=== PATIENT | male | born 1955 | race Caucasian/White ===

== ENCOUNTER 2018-09-05 09:05 | Observation (INO) ==
--- NOTE | 2018-08-15 15:51 | PAT Medication Instructions ---
Medication Instructions Date of Service August 15, 2018 Home Medications Medication Instructions Recorded gabapentin 300 mg capsule 300 mg PO TID #90 cap 08/05/18 multivitamin 1 tab PO QAM gabapentin 300 mg capsule 300 mg PO TID naproxen 220 mg-diphenhydramine 25mg 1 tab PO HS naproxen sodium 220 mg tablet 220 mg PO Q8H PRN ASK your prescriber and surgeon naproxen 220 mg-diphenhydramine 25mg 1 tab PO HS naproxen sodium 220 mg tablet 220 mg PO Q8H PRN DO NOT take the morning of surgery multivitamin 1 tab PO QAM Take morning of surgery With a small sip of water, OTHERWISE NOTHING TO EAT OR DRINK AFTER MIDNIGHT: gabapentin 300 mg capsule 300 mg PO TID Take evening before surgery gabapentin 300 mg capsule 300 mg PO TID Other Notes If you have any questions please call us at [phone] or [phone] or [phone] or [phone]
--- NOTE | 2018-08-16 11:07 | Anesthesiology Consultation ---
Date of Service August 16, 2018 Assessment & Plan (1) Encounter for pre-operative examination: Chart Review Chart Review: Acceptable Risk for Surgery and Patient seen in Pre Admission Testing Teaching & Discussion Instructed NPO after midnight before surgery, except medications with 15 cc of water. Medication instructions provided according to the PAT guidelines. History Surgery Operation Date: 09/05/18 10:50 Proposed Procedures p C7-T1 Anterior Cervical Discectomy and Fusion with Iliac Crest Bone Graft - Erick Farias, Height/Weight Height: 5 ft 10 in Weight: 84.4 kg Allergies Allergy/AdvReac Type Severity Reaction Status Date / Time No Known Allergies Allergy Verified 08/12/18 12:16 Medications Home Medications Medication Instructions Recorded Confirmed Last Taken multivitamin 1 tab PO QAM 05/03/18 08/12/18 05/20/18 gabapentin 300 mg capsule 300 mg PO TID #90 cap 08/05/18 08/12/18 Unknown naproxen 220 mg-diphenhydramine 25 1 tab PO HS 08/05/18 08/12/18 Unknown mg tablet naproxen sodium 220 mg tablet 220 mg PO Q8H PRN 08/05/18 08/12/18 Unknown Past Medical History Medical History Herniation of cervical intervertebral disc with radiculopathy (Acute) Cervicalgia (Chronic) Cervical facet syndrome (Acute) Cervical radiculopathy (Acute) Exercise / Class Metabolic Activity II 4-5 Yardwork/Stairs/Walk up hill (previously more active, has been limited by recent bunionectomy and now neck pain, denies CP or SOB) Past Family History Family History Other No family history of adverse response to anesthesia Past Surgical History Surgical History History of bunionectomy (Resolved) RT SIDE ON LITTLE TOE History of colonoscopy (Resolved) 05/25/2018. MAC no issues. History of hand surgery (Resolved) right, middle finger--no hardware History of tooth extraction (Resolved) 2 front teeth replaced Hx of vasectomy (Resolved) Status post bilateral LASIK surgery (Resolved) Past Anesthesia History No Hx of Anesthesia Complications and No Family Hx of Anesthesia Complications History of PONV No Hx of PONV and No Family Hx of PONV STOP BANG Total 3 Social History Smoking Status: Never smoker Do You Dip or Chew Tobacco: No Hx Alcohol Use: Yes Alcohol type: wine alcohol intake frequency: a few times a week Hx Substance Use: No substance use type: does not use Review of Systems Pt denies any recent chest pain, shortness of breath, palpitations, cough, fever or URI. +dry raspy throat Physical Exam Vital Signs BP: 143/72 P: 69bpm SPO2: 95% RA T: 98.0 R: 12 ENMT Mouth: + dental restorations (two implants on upper central incisors); no c hipped teeth and no loose teeth Thyromental Distance: > or= 3.5 Finger Breadths (3.5) Mallampati Class: II Neck normal visual inspection and + limited neck extension (mildly) Respiratory normal respiratory effort Auscultation: lungs clear to auscultation bilaterally Cardiovascular Rate/Rhythm: regular rate and regular rhythm Heart Sounds: no murmur Vessels: no carotid bruit Extremities: no edema Testing Electrocardiogram Date: 06/03/18 Findings: + SB @ (59bpm) iRBBB. Chest X-Ray Date: 08/16/18 Findings: + NAD Laboratory Results 08/16/18 11:15 08/16/18 11:15 Blood Type O Positive 08/16/18 11:15 Antibody Screen NEGATIVE 08/16/18 11:15 PT 10.2 Seconds (9.0-12.0) 08/16/18 11:15 INR 1.0 (0.9-1.1) 08/16/18 11:15 APTT 26.6 Seconds (21.0-31.0) 08/16/18 11:15
--- NOTE | 2018-08-16 12:10 | XRay Report ---
XR chest Pre-admission PA/Lat CLINICAL HISTORY: Preoperative evaluation. COMPARISON STUDY: No previous studies for comparison. FINDINGS: Lung volumes are normal. There is no pneumothorax or pleural effusion. There is no consolid ation or evidence for pulmonary edema. Cardiac size is normal. Mediastinal contours are normal. IMPRESSION: No acute cardiopulmonary findings. Electronically signed by: Laz Carrera M.D. 08/16/2018 12:09 PM
[2018-08-16 12:13] LABS: Basophils # (auto) 0.02 K/uL (0-0.2); Basophils % (auto) 0.4 %; Eosinophils # (auto) 0.15 K/uL (0-0.5); Eosinophils % (auto) 2.9 %; Hematocrit (blood only) 43.1 % (42-52); Hemoglobin 14.7 g/dL (14.0-18.0); Immature Granulocytes # (auto) 0.01 K/uL (0.00-0.02); Immature Granulocytes % (auto) 0.2 %; Lymphocytes # (auto) 1.44 K/uL (1.2-3.4); Lymphocytes % (auto) 28.1 %; Mean Corpuscular Hgb Conc 34.1 g/dL (32-36); Mean Corpuscular Volume 90.2 fL (80-100); Mean Platelet Volume 11.4 fL (7.4-10.4); Monocytes # (auto) 0.41 K/uL (0.11-0.59); Neutrophils # (auto) 3.09 K/uL (1.4-6.5); Neutrophils % (auto) 60.4 %; Platelet Count 210 K/uL (130-400); RDW Coefficient of Variation 13.6 % (11.5-14.5); RDW Standard Deviation 45.4 fL (36.4-46.3); Red Blood Count 4.78 M/uL (4.7-6.1); White Blood Count 5.12 K/uL (4.8-10.8)
[2018-08-16 12:25] LABS: Partial Thromboplastin Time 26.6 Seconds (21.0-31.0); Prothrombin Time 10.2 Seconds (9.0-12.0)
[2018-08-16 12:55] LABS: BUN Creatinine Ratio 24.3 (10-20); Creatinine Clr Calc Pharmacy 83.9 ml/min; Est GFR (African American) 100.9; Est GFR (Non-African American) 87.1; Potassium 4.3 mmol/L (3.5-5.1)
--- NOTE | 2018-09-02 15:26 | History and Physical Report ---
DATE OF ADMISSION: 09/05/2018 CHIEF COMPLAINT: He is scheduled for anterior cervical discectomy and fusion, C7-T1 cervical spine. HISTORY OF PRESENT ILLNESS: Parker is a delightful gentleman. He is 62 years of age. His has neck and arm pain going on for several months in duration, worsening over time, failing conservative measures, significant pain and associated weakness. PAST MEDICAL HISTORY: Negative for hypertension, COPD, diabetes mellitus. PAST SURGICAL HISTORY: Finger surgery. ALLERGIES: Negative. FAMILY HISTORY: Heart disease. SOCIAL HISTORY: He is . Minimal alcohol, no tobacco. Very active lifestyle, physically fit. REVIEW OF SYSTEMS: Denies any fevers, sweats, chills. Ear, nose and throat negative. Denies chest pain, palpitations. Denies asthma, wheezing, shortness of breath. Denies nausea, vomiting, urgency, frequency, dysuria. Denies skin rashes or lesions. He has neck pain, arm pain, trapezius pain, associated weakness. PHYSICAL EXAMINATION: GENERAL: He is 5 feet 10, 180 pounds. He is in distress. VITAL SIGNS: Blood pressure 130/80, pulse 80. CARDIAC: Normal S1, S2, no S3. LUNGS: Clear to auscultation. No rales, rhonchi, wheezing. ABDOMEN: Soft, nontender, bowel sounds present. GENITOURINARY: No dysuria. No pelvic pain. MUSCULOSKELETAL: He has neck pain, arm pain, and trapezius pain. He has weakness of complaint analyst strength. He has decreased triceps strength. He has a Spurling maneuver and Lhermitte sign. IMAGING DATA: Images reviewed in great detail. PLAN: Includes an anterior cervical discectomy and fusion, C7-T1 with iliac crest bone graft September 05.
--- NOTE | 2018-09-02 15:37 | History and Physical Report ---
DATE OF ADMISSION: 09/05/2018 CHIEF COMPLAINT: Neck pain, arm pain, trapezius pain. HISTORY OF PRESENT ILLNESS: Parker is delightful. He has a disc herniation of the cervical spine. He has neck pain, arm pain, weakness and is scheduled for a surgery on 05 of September for anterior cervical fusion. PAST MEDICAL HISTORY: Negative for heart disease, diabetes, carcinoma. PAST SURGICAL HISTORY: Finger surgery. ALLERGIES: Negative. FAMILY HISTORY: Heart disease. SOCIAL HISTORY: He is . 1-2 drinks of alcohol daily. No tobacco. Very active lifestyle, keeps himself physically fit. He is retired. REVIEW OF SYSTEMS: He has no fever, sweats, chills. No bowel and bladder issues. Ear, nose and throat negative. Denies chest pain, palpitations. No asthma, wheezing, shortness of breath. No nausea, vomiting, urgency, frequency, dysuria. His neck pain, arm pain and weakness. MEDICATIONS: Gabapentin and an anti-inflammatory. OBJECTIVE: GENERAL: He is alert and oriented, 62 years of age. He has pain with flexion, extension of cervical spine. Pain with rotation: VITAL SIGNS: He is 5 feet 10 inches. He is 180. His blood pressure 120/80, pulse regular rate and rhythm about 80 beats per minute. CARDIAC: Normal S1, S2, no S3. LUNGS: Clear to auscultation. No rales, rhonchi, wheezing. ABDOMEN: Soft, nontender. Bowel sounds present. NEUROLOGIC: He has pain with flexion, extension of cervical spine. 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 He has a Spurling maneuver and Lhermitte sign. PLAN: Includes an anterior cervical discectomy and fusion, C7-T1 with iliac crest bone graft.
[~2018-09-05 09:05] MED LIST: CEFAZOLIN 2000MG 2,000 MG/15 ML SYR IV SCH; LR 15ML/HR IV SCH; LR 60ML/HR IV SCH; MIDAZOLAM HCL 1 MG/ML 2ML VIAL ONE; SODIUM CHLORIDE 0.9% 1000ML 1,000 ML IV SCH; fentaNYL citrate 100 MCG/2 ML VIAL ONE
[2018-09-05] MEDS ORDERED: BUPIVACAINE/EPINEPHRINE 0.5% MPF 1:200,000 30 ML VIAL ONE (09:45)
[2018-09-05] MEDS ORDERED: GELATIN SPONGE SZ 100 ONE (09:45)
[2018-09-05] MEDS ORDERED: THROMBIN FOR SOLN 20000 UNIT KIT ONE (09:46)
[2018-09-05] MEDS ORDERED: BACITRACIN INJ 50,000 UNIT VIAL ONE (09:46)
--- NOTE | 2018-09-05 10:01 | History & Physical Bridge Note ---
Date of Service September 05, 2018 History & Physical Bridge Note I have examined the patient, reviewed the History & Physical and in the interval since the performance of the History & Physical I have noted the following changes of clinical significance: no changes noted
[2018-09-05] MEDS ORDERED: HYDROmorphone INJ 1 MG/ML SYRINGE IV PRN (10:09)
[2018-09-05] MEDS ORDERED: ATROPINE SULFATE 0.1 MG/ML 10ML SYR IV PRN (10:09)
[2018-09-05] MEDS ORDERED: fentaNYL citrate 100 MCG/2 ML VIAL IV PRN (10:09)
[2018-09-05] MEDS ORDERED: ONDANSETRON INJ 2 MG/ML 2 ML VIAL IV PRN ×2 (10:09→14:30)
[2018-09-05] MEDS ORDERED: ePHEDrine sulfate 50 MG/ML AMP IV PRN (10:09)
[2018-09-05] MEDS ORDERED: ROCURONIUM BROMIDE 10 MG/ML 5 ML VIAL ONE ×2 (10:52→10:59)
[2018-09-05] MEDS ORDERED: PROPOFOL IV EMULSION 10 MG/ML 20 ML VIAL IV ONE (10:52)
[2018-09-05] MEDS ORDERED: GLYCOPYRROLATE 0.2 MG/ML VIAL ONE (10:52)
[2018-09-05] MEDS ORDERED: ONDANSETRON INJ 2 MG/ML 2 ML VIAL ONE (10:52)
[2018-09-05] MEDS ORDERED: NEOSTIGMINE METHYLSULFATE 5 MG/5 ML SYR ONE (10:52)
[2018-09-05] MEDS ORDERED: DEXAMETHASONE SOD INJ 4 MG/ML VIAL ONE (10:52)
[2018-09-05] MEDS ORDERED: LIDOCAINE HCL 2% 2 ML VIAL/AMP(20MG/ML) INFIL ONE (10:52)
[2018-09-05] MEDS ORDERED: LARYING-O-JET KIT (LTA) ONE (10:52)
[2018-09-05] MEDS ORDERED: HYDROmorphone INJ 2 MG/ML SYR/VIAL ONE (10:59)
[2018-09-05] MEDS ORDERED: ePHEDrine sulfate 50 MG/ML SYR ONE (11:01)
[2018-09-05] MEDS ORDERED: PHENYLEPHRINE 100MCG/ML 5ML SYR ONE (11:01)
--- OUTSIDE RECORDS SUMMARY | 2018-09-05 11:50 | External Medical Summary | Continuity of Care Document ---
:1955 Author Name Kodak Gregory Address Unavailable Unavailable , Care Team Providers Name Role Phone Matty DE LA ROSA Unavailable [email or web address] Frank [email or web address] Unavailable [email or web address] Serina DIALLO Unavailable Unavailable Unavailable Unavailable Unavailable Problems Active medical history not documented Allergies and Adverse Reactions Allergy history not documented Medications Suprep Bowel Prep Kit 17.5-3.13-1.6 GM/177ML Oral Solu tion; USE DIRECTED. RJ Starr Start: 28-Apr-2018 Quantity: 1 2 x 177 ML Bottle Refills: 0 Procedures Procedures not documented Immunizations Immunizations not documented Plan of Treatment Planned Observations Planned Goals not documented Results No Known Results Results not documented
--- NOTE | 2018-09-05 12:11 | Fluoroscopy Report ---
FL spine 1V any level CLINICAL HISTORY: 62 years-old Male presenting with C7-T1 ACDF. TECHNIQUE: 1 fluoroscopic image(s) recorded as part of an intraoperative procedure. COMPARISON: MR from 07/15/2018. FINDINGS/IMPRESSION: Anterior cervical discectomy and fusion at C7-T1 poorly visualized due to overlapping osseous structu res. Supporting tubes device is noted aerodigestive tract. Please see surgical report for further details. Fluoroscopy dosage (mGy): 3.87. Fluoroscopy time: 9.1 seconds. Number or time of high level fluoroscopy (HLF), digital spot, or digital subtraction images: 2.2 seco nds. Electronically signed by: Parker García M.D. 09/05/2018 12:10 PM
--- NOTE | 2018-09-05 12:25 | Post Operative Brief Note ---
Immediate Post Op Note v1 Date of Surgery September 05, 2018 Pre & Post Diagnosis Operation Date: 09/05/18 10:30 Pre-Op Diagnosis: Disc Herniation, Cervical Spondylosis Post-Op Diagnosis: Disc Herniation, Cervical Spondylosis Procedure Operation Date: 09/05/18 10:30 Actual Procedures p C7-T1 Anterior Cervical Discectomy and Fusion with Left Iliac Crest Bone Graft(Not Applicable) - Erick Farias DO Surgeon Erick Farias DO Automatic Line Set Up Mechanic joy Estimated Blood Loss 20 Findings Consistent with Post-Op Diagnosis Drains [place] Drain
--- NOTE | 2018-09-05 14:00 | Anesthesiology Progress Note ---
Date of Service September 05, 2018 Anesthesia Post Procedure Vital Signs Vital Signs: Temp Pulse Resp BP Pulse Ox 09/05/18 13:50 76 13 130/81 96 09/05/18 13:40 36.3 C L 54 L 12 132/78 97 09/05/18 13:30 52 L 15 133/86 99 09/05/18 13:20 57 L 10 L 134/71 98 09/05/18 13:10 63 10 L 133/79 97 09/05/18 13:00 75 11 L 133/80 96 09/05/18 12:50 64 10 L 125/66 99 09/05/18 12:40 77 12 128/58 L 99 09/05/18 12:30 86 14 128/69 98 09/05/18 12:22 36.2 C L 59 L 12 112/61 96 Pain Intensity Neck: Pain Intensity: 0 Transfer of Care Handoff Completed per policy Notes Mental Status: alert / awake / arousable and participated in evaluation Patient Amnestic to Procedure: Yes Nausea / Vomiting: adequately controlled Pain: adequately controlled Airway Patency, RR, SpO2: stable & adequate BP & HR: stable & adequate Hydration State: stable & adequate Anesthetic Complications: no major complications apparent and Pt Satisfied with anesthetic care
[2018-09-05] MEDS ORDERED: HYDROmorphone INJ 0.5 MG/0.5 ML SYR IV PRN (14:30)
[2018-09-05] MEDS ORDERED: OXYCODONE HCL IR 5 MG TAB (IMMEDIATE RELEASE) PO PRN (14:30)
[2018-09-05] MEDS ORDERED: DEXAMETHASONE SOD PHOSPHATE 8 MG in SYRINGE 0 ML IV PRN (14:30)
[2018-09-05] MEDS ORDERED: LORazepam 0.5 MG/1 ML VIAL IV PRN (14:30)
[2018-09-05] MEDS ORDERED: RACEPINEPHRINE 2.25% NEBU SOLN 0.5 ML VIAL INH PRN (14:30)
[2018-09-05] MEDS ORDERED: ACETAMINOPHEN 1,000 MG/100 ML VIAL IV PRN (14:30)
[2018-09-05] MEDS ORDERED: NALOXONE HCL 0.4 MG/1 ML VIAL/CARP IV PRN (14:30)
[2018-09-05] MEDS: GABAPENTIN 300 MG CAP PO SCH ×2 (16:37→20:48)
[2018-09-05] MEDS: SODIUM CHLORIDE 0.9% 1000ML 1,000 ML IV SCH (16:39)
[2018-09-05] MEDS: DEXAMETHASONE SOD PHOSPHATE 6 MG in SYRINGE 0 ML IV SCH (18:36)
[2018-09-05] MEDS: CEFAZOLIN 2000MG 2,000 MG/15 ML SYR IV SCH (18:36)
[2018-09-06] MEDS: CEFAZOLIN 2000MG 2,000 MG/15 ML SYR IV SCH ×2 (01:21→09:12)
[2018-09-06] MEDS: DEXAMETHASONE SOD PHOSPHATE 6 MG in SYRINGE 0 ML IV SCH ×2 (03:00→09:13)
[2018-09-06] MEDS: SODIUM CHLORIDE 0.9% 1000ML 1,000 ML IV SCH (03:09)
--- NOTE | 2018-09-06 07:57 | Operative Report ---
DATE OF OPERATION: 09/05/2018 PREOPERATIVE DIAGNOSIS: Disc herniation, cervical spine C7-T1 with spinal cord compression. POSTOPERATIVE DIAGNOSIS: Disc herniation, cervical spine C7-T1 with spinal cord compression. PROCEDURE: 1. Anterior cervical thoracic discectomy fusion at C7-T1 cervical spine, decompression of spinal cord. 2. Left iliac crest structural autograft. 3. Anterior plating from C7-T1. SURGEON: Erick Farias DO DIRECTOR BIOLOGICS: Gerson Cruz PA-C. COMPLICATIONS: Zero. Prior to taking the patient back to the operating room, he was marked correctly in the holding area. He was brought to the operating room. He was prepped and draped sterile. We made a skin incision over the C7 vertebral body. We came right down on C6-C7 interspace. Worked downward one space below C7-T1. With great exposure, we did a formal discectomy at this level, taking out all conceivable disc material. I was back in through the posterior longitudinal ligament. I was into the neural foramen. I retrieved free fragment disc. I felt his spinal cord was completely decompressed of nerve root pressure. We then went to the iliac crest to harvest and made a skin incision, fascial incision, harvested a structural autograft from left iliac crest approximately 7 mm in height, tapered to 6, 15 mm in depth and approximately 15 mm left to right. This was placed in the discectomy site at C7-T1. An anterior plate was placed over the construct, locked with cortical screw 16 mm in length. A postop x-ray obtained demonstrated appropriate positioning of spinal implants. We then irrigated and closed in layers cervical spine and the iliac crest. Sterile dressings applied. Collar applied. The patient returned to PACU in improved and stable condition. There were no apparent intraoperative complications. As stated surgeon was Dinora, medical claims assistant was Gerson Cruz. IMPLANTS USED: Were by the [employer] anterior plate. The anterior bone graft and plate were absolutely required for the structural stability of the cervical spine. Sponge and needle count correct at the close of the procedure. There was no allograft used in the surgical procedure. I attest to the content of the Intraoperative Record and any orders documented therein. Any exception s are noted below.
--- NOTE | 2018-09-06 08:47 | Anesthesiology Progress Note ---
Date of Service September 06, 2018 Anesthesia Post Procedure Vital Signs Vital Signs: Temp Pulse Pulse Resp BP Pulse Ox 09/06/18 07:13 84 14 96 09/06/18 07:08 36.6 C 77 16 123/79 94 09/06/18 05:15 36.8 C 71 16 120/74 95 09/06/18 04:02 79 16 92 09/06/18 03:15 37.4 C 81 16 113/74 95 09/06/18 01:15 37.2 C 87 16 109/69 96 09/05/18 23:46 99 H 16 95 09/05/18 23:15 37.0 C 91 H 18 112/72 95 09/05/18 21:15 36.6 C 82 16 128/83 94 09/05/18 20:07 89 16 95 09/05/18 19:15 36.8 C 82 18 112/85 95 09/05/18 17:15 36.7 C 87 16 119/75 97 09/05/18 16:15 36.4 C L 87 16 145/80 H 96 09/05/18 15:21 104 H 18 97 09/05/18 15:15 36.6 C 84 16 136/80 96 09/05/18 14:45 72 16 125/76 97 09/05/18 14:15 36.4 C L 73 16 133/79 96 09/05/18 14:00 72 12 129/71 96 09/05/18 13:50 76 13 130/81 96 09/05/18 13:40 36.3 C L 54 L 12 132/78 97 09/05/18 13:30 52 L 15 133/86 99 09/05/18 13:20 57 L 10 L 134/71 98 09/05/18 13:10 63 10 L 133/79 97 09/05/18 13:00 75 11 L 133/80 96 09/05/18 12:50 64 10 L 125/66 99 09/05/18 12:40 77 12 128/58 L 99 09/05/18 12:30 86 14 128/69 98 09/05/18 12:22 36.2 C L 59 L 12 112/61 96 Pain Intensity Neck: Pain Intensity: 0 Left Hip: Pain Intensity: 2 Transfer of Care Handoff Completed per policy Notes Mental Status: alert / awake / arousable Patient Amnestic to Procedure: Yes Nausea / Vomiting: adequately controlled Pain: adequately controlled Airway Patency, RR, SpO2: stable & adequate BP & HR: stable & adequate Hydration State: stable & adequate Anesthetic Complications: no major complications apparent and Pt Satisfied with anesthetic care
[2018-09-06] MEDS: GABAPENTIN 300 MG CAP PO SCH (09:13)
--- NOTE | 2018-09-07 10:14 | Discharge Summary ---
Parker was admitted in observation status on 09/05/2018, discharged home in the morning of the in improved stable condition. He had an uneventful observation status here in the hospital. Vital signs stable. Alert, oriented, taking p.o. Pain controlled. DISPOSITION: He is discharged home in improved stable condition. Dressing changed. Appointment made. Prescriptions provided and a followup examination in the office will be done in approximately 10 days.
== END 2018-09-06 11:00 | disposition home or self-care (01) ==
LOC: ASU 09:05 → 3E 09:05